=== PATIENT | male | born 1960 | race Caucasian/White ===

== ENCOUNTER 2019-07-25 13:52 | Emergency (ER) | payer BC ==
--- NOTE | 2019-07-25 15:46 | EDM.PDOC ---
ED HPI GENERAL MEDICAL PROBLEM - General Chief Complaint: Laceration Stated Complaint: SLIPPED ON ICE-NEED STITCHES ABOVE EYE Time Seen by Provider: 07/25/19 15:35 Source of Information: Reports: Patient History Limitations: Reports: No Limitations - History of Present Illness INITIAL COMMENTS - FREE TEXT/NARRATIVE: This 59 yo male patient reports to the ED due to a ground level fall last night. The patient reports he was walking up his driveway in his cowboy boots when he slipped. In an attempt to avoid breaking the things he was carrying, the patient ended up falling directly on his face. The patient reports pain in his face and right shoulder. The patient reports a previous injury to the same shoulder about 1 year ago. The patient reports no loss of consciousness before, during or after the fall. Onset Date: 07/24/19 Duration: Constant Location: Reports: Face, Upper Extremity, Right Quality: Reports: Ache, Dull Severity: Moderate Improves with: Reports: None Worsens with: Reports: None Context: Reports: Trauma (ground level fall) Associated Symptoms: Reports: No Other Symptoms - Related Data Allergies Allergy/AdvReac Type Severity Reaction Status Date / Time No Known Allergies Allergy Verified 07/25/19 15:19 Home Meds: Home Meds Varenicline Tartrate [Chantix] 1 mg PO BID 07/25/19 [History] Past Medical History - Past Health History Medical/Surgical History: Denies Medical/Surgical History Social & Family History - Tobacco Use Smoking Status *Q: Current Every Day Smoker Years of Tobacco use: 40 Packs/Tins Daily: 0.4 - Caffeine Use Caffeine Use: Reports: Coffee, Soda - Recreational Drug Use Recreational Drug Use: No ED ROS GENERAL - Review of Systems Review Of Systems: Comprehensive ROS is negative, except as noted in HPI. ED EXAM, SKIN/RASH Exam: See Below Exam Limited By: No Limitations General Appearance: Alert, WD/WN, No Apparent Distress Eye Exam: Bilateral Eye: EOMI, PERRL, Other (The patient has bruising around both eyes ) Ears: Normal External Exam, Normal Canal, Hearing Grossly Normal, Normal TMs Nose: Normal Inspection, Normal Mucosa, No Blood Throat/Mouth: Normal Inspection, Normal Lips, Normal Teeth, Normal Gums, Normal Oropharynx, Normal Voice, No Airway Compromise Head: Facial Tenderness, Sinus Tenderness Neck: Normal Inspection, Supple, Non-Tender, Full Range of Motion Respiratory/Chest: No Respiratory Distress, Lungs Clear, Normal Breath Sounds, No Accessory Muscle Use, Chest Non-Tender Cardiovascular: Normal Peripheral Pulses, Regular Rate, Rhythm, No Edema, No Gallop, No JVD, No Murmur, No Rub GI/Abdominal: Normal Bowel Sounds, Soft, Non-Tender, No Organomegaly, No Distention, No Abnormal Bruit, No Mass (Male) Exam: Deferred Rectal (Males) Exam: Deferred Back Exam: Normal Inspection, Full Range of Motion, NT Extremities: Arm Pain (right shoulder pain with movement ) Neurological: Alert, Oriented, CN II-XII Intact, Normal Cognition, Normal Gait, Normal Reflexes, No Motor/Sensory Deficits Psychiatric: Normal Affect, Normal Mood Lymphatic: No Adenopathy Course - Vital Signs Last Recorded V/S: Last Vital Signs Temp 37.1 C 07/25/19 15:20 Pulse 80 07/25/19 15:20 Resp 18 07/25/19 15:20 BP 114/76 07/25/19 15:20 Pulse Ox 93 L 07/25/19 15:20 Departure - Departure Time of Disposition: 16:23 Disposition: Home, Self-Care 01 Condition: Fair Clinical Impression: Facial contusion Qualifiers: Encounter type: initial encounter Qualified Code(s): S00.83XA - Contusion of other part of head, initial encounter Maxillary sinusitis, acute Qualifiers: Recurrence: non-recurrent Qualified Code(s): J01.00 - Acute maxillary sinusitis , unspecified - Discharge Information *PRESCRIPTION DRUG MONITORING PROGRAM REVIEWED*: Not Applicable *COPY OF PRESCRIPTION DRUG MONITORING REPORT IN PATIENT ERLINDA: Not Applicable Instructions: Sinusitis, Adult, [id number], Contusion, [id number] Forms: ED Department Discharge Care Plan Goals: The patient was advised of the examination and CT results during the visit. The patient was discharged with a script for Keflex (500 mg) #30 to take 1 by mouth 3 times per day for 10 days. If the patient has any additional symptoms or concerns, the patient should either return to the emergency department or visit his primary care facility. Sepsis Event Note - Evaluation Sepsis Screening Result: No Definite Risk - Focused Exam Vital Signs: Vital Signs Temp Pulse Resp BP Pulse Ox 07/25/19 15:20 37.1 C 80 18 114/76 93 L Date Exam was Performed: 07/25/19 Time Exam was Performed: 16:23
== END 2019-07-25 16:35 | disposition home or self-care (01) ==
LOC: DL.ED 13:52
DX: S00.83XA Contusion of other part of head, initial encounter (principal); J01.00 Acute maxillary sinusitis, unspecified; F17.210 Nicotine dependence, cigarettes, uncomplicated; W18.30XA Fall on same level, unspecified, initial encounter
CPT/HCPCS: 70486; 99283-25

== ENCOUNTER 2020-06-10 09:09 | Emergency (ER) | payer BC ==
--- NOTE | 2020-06-10 09:27 | EDM.PDOC ---
ED HPI GENERAL MEDICAL PROBLEM - General Chief Complaint: Gastrointestinal Problem Stated Complaint: CONSTIPATION Time Seen by Provider: 06/10/20 09:24 Source of Information: Reports: Patient, RN, RN Notes Reviewed History Limitations: Reports: No Limitations - History of Present Illness INITIAL COMMENTS - FREE TEXT/NARRATIVE: Pt presents to ER from home by POV with c/o constipation x4 days. Pt states that he took something OTC yesterday to help with having a BM but does not know what he took. Last BM was 4 or 5 days ago. Denies fever, chills, N/V, abdominal distention, or urinary problems. 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 [No Known Home Meds] 06/10/20 [History] Past Medical History - Past Health History Medical/Surgical History: Denies Medical/Surgical History HEENT History: Reports: Hard of Hearing, Impaired Vision Cardiovascular History: Reports: None Respiratory History: Reports: None Gastrointestinal History: Reports: None Genitourinary History: Reports: None Musculoskeletal History: Reports: None Neurological History: Reports: None Psychiatric History: Reports: None Endocrine/Metabolic History: Reports: None Hematologic History: Reports: None Immunologic History: Reports: None Oncologic (Cancer) History: Reports: None Dermatologic History: Reports: None - Infectious Disease History Infectious Disease History: Reports: None - Past Surgical History Head Surgeries/Procedures: Reports: None Social & Family History - Family History Family Medical History: Noncontributory - Tobacco Use Tobacco Use Status *Q: Current Every Day Tobacco User Years of Tobacco use: 40 Packs/Tins Daily: 0.5 - Caffeine Use Caffeine Use: Reports: None - Recreational Drug Use Recreational Drug Use: No ED ROS GENERAL - Review of Systems Review Of Systems: Comprehensive ROS is negative, except as noted in HPI. ED EXAM, GI/ABD - Physical Exam Exam: See Below Exam Limited By: No Limitations General Appearance: Alert, WD/WN, No Apparent Distress Eyes: Bilateral: Normal Appearance (No scleral icterus) Head: Atraumatic, Normocephalic Respiratory/Chest: No Respiratory Distress Cardiovascular: Regular Rate, Rhythm GI/Abdominal Exam: Normal Bowel Sounds, Soft, Non-Tender, No Organomegaly, No Distention, No Abnormal Bruit, No Mass, Pelvis Stable Rectal (Males) Exam: Deferred Back Exam: Normal Inspection Neurological: Alert, Oriented, No Motor/Sensory Deficits Psychiatric: Normal Mood Skin Exam: Warm, Dry, Intact, Normal Color, No Rash Course - Vital Signs Last Recorded V/S: Last Vital Signs Temp 97.7 F 06/10/20 09:16 Pulse 83 06/10/20 09:16 Resp 18 06/10/20 09:16 BP 132/84 06/10/20 09:16 Pulse Ox 95 06/10/20 09:16 - Orders/Labs/Meds Orders: Active Orders 24 hr Category Date Time Status Abdomen 2V AP Flat Upright [CR] Urgent Exams 06/10/20 09:31 Ordered Meds: Medications Discontinued Medications Generic Name Dose Route Start Last Admin Trade Name Linsey PRN Reason Stop Dose Admin Bisacodyl 10 mg 06/10/20 09:45 06/10/20 09:52 Dulcolax RECTAL 06/10/20 09:46 10 mg ONETIME ONE Administration Lactulose 30 gm 06/10/20 09:45 06/10/20 09:52 Cephulac PO 06/10/20 09:46 30 gm ONETIME ONE Administration Magnesium Citrate 296 ml 06/10/20 09:46 06/10/20 09:53 Citrate Of Magnesia PO 06/10/20 09:47 296 ml ONETIME ONE Administration - Radiology Interpretation Free Text/Narrative:: XR Abd: constipation, non-obstructive bowel gas pattern, see Rad. report. Departure - Departure Time of Disposition: 09:54 Disposition: Home, Self-Care 01 Condition: Good Clinical Impression: Constipation Qualifiers: Constipation type: other constipation type Qualified Code(s): K59.09 - Other constipation - Discharge Information *PRESCRIPTION DRUG MONITORING PROGRAM REVIEWED*: Not Applicable *COPY OF PRESCRIPTION DRUG MONITORING REPORT IN PATIENT ERLINDA: Not Applicable Instructions: Constipation, Adult, High-Fiber Diet Forms: ED Department Discharge Additional Instructions: Drink half bottle of Magnesium Citrate at noon today if you have not had at least one large bowel movement by noon. Drink the second half bottle at 6:00PM this evening if needed. Sepsis Event Note (ED) - Evaluation Sepsis Screening Result: No Definite Risk - Focused Exam Vital Signs: Vital Signs Temp Pulse Resp BP Pulse Ox 06/10/20 09:16 97.7 F 83 18 132/84 95 - My Orders Last 24 Hours: My Active Orders 06/10/20 09:31 Abdomen 2V AP Flat Upright [CR] Urgent - Assessment/Plan Last 24 Hours: My Active Orders 06/10/20 09:31 Abdomen 2V AP Flat Upright [CR] Urgent
[2020-06-10] MEDS ORDERED: Lactulose Soln 10 GM/15 ML 30 ML UD Cup PO ONE (09:45)
[2020-06-10] MEDS ORDERED: Bisacodyl 10 MG Supp RECTAL ONE (09:45)
[2020-06-10] MEDS ORDERED: Magnesium Citrate Solution 296 ML Bottle PO ONE (09:46)
--- NOTE | 2020-06-10 10:07 | CR ---
PROCEDURE INFORMATION: Exam: XR Abdomen, 2 Views Exam date and time: 06/10/2020 9:32 AM Age: 60 years old Clinical indication: Abdominal pain; Additional info: Constipation, abdominal pressure TECHNIQUE: Imaging protocol: XR of the abdomen. Views: 2 Views. COMPARISON: No relevant prior studies available. FINDINGS: Gastrointestinal tract: Unobstructed. No bowel wall thickening or pneumatosis. Intraperitoneal space: No ascites or pneumoperitoneum. Organs: Isodense round mass in the region of the right kidney highly suspicious for a very large cyst or other mass that may measure as much as 9 cm. Bones/joints: No fracture. Soft tissues: No urolith. Other findings: Conspicuous retained stool. IMPRESSION: 1. Unobstructed bowel but with evidence of constipation. No acute disease. 2. Right renal mass that may measure up to 9 cm. Renal ultrasound is recommended.
== END 2020-06-10 10:00 | disposition home or self-care (01) ==
LOC: DL.ED 09:09
DX: K59.09 Other constipation (principal); F17.210 Nicotine dependence, cigarettes, uncomplicated
CPT/HCPCS: 74019; 99283; A9270